=== PATIENT | female | born 1935 | race Caucasian/White ===

== ENCOUNTER 2023-12-31 11:59 | Emergency (ER) | payer OTHER, SELFPAY ==
[2023-12-31 12:05] VITALS: BP 147/95
--- NOTE | 2023-12-31 13:32 | ED.GENMED ---
History of Present Illness
General
Chief Complaint: Skin Surface Trauma
Source: patient and family
Time Seen by Provider: 12/31/23 12:28
History of Present Illness
History of Present Illness:
88-year-old female with past medical history of hypertension presenting to the emergency department for evaluation with family after she fell earlier this morning injuring her right elbow and possible head injury. Does not remember much of the
incident. Also notes that she had an abrasion from the right elbow yesterday too. Denies any other injuries. She does admit to some mild right elbow pain. No reported loss consciousness, vomiting or visual changes. Patient denies any headache
presently
Past History
Past History
ED Past Medical History: HTN
ED Past Surgical History: Orthopedic and Other (3 with documented past surgical history)
Social History
Tobacco: Non-smoker
Alcohol: None
Drug: None
Personal:
Living: with family
Review of Systems
Review of Systems
All Other Systems: ROS reviewed and negative except as documented in HPI and ROS
Phy Exam
Physical Exam
Physical Exam:
GENERAL: Alert , in no apparent distress, smiling and pleasant
EYE: conjunctiva clear
Head: Normocephalic atraumatic
NECK: Supple,
ENT: mmm.
LUNGS: no acute respiratory distress
NEUROLOGICAL: Alert and oriented
SKIN: Warm and dry, abrasion/very small skin tear measuring <5mm. No active bleeding. dried blood surrounding
MUSCULOSKELETAL: well perfused.
PSYCH: Normal and appropriate interaction.
Scores
Heart Failure Risk
Heart Failure Risk Score: Not Applicable
Heart Score for Chest Pain Patients
STEMI patient?: Not applicable
Withdrawal Assessment of Alcohol
Withdrawal Assessment Completed?: Not applicable
Course
Orders/Labs/Results
Orders:
Orders
12/31/23 12:46
CT Head W/o Iv Contrast Urgent
Comment:
Reason For Exam: unwitnessed fall
Wound Dressing- Treatment ONCE
Location of Wound: right elbow
CR Elbow - Right Min 3 Views Urgent
Comment:
Reason For Exam: fall
Vital Signs
Initial and Last Documented VS:
Initial Vital Signs
Temp Pulse Resp BP Pulse Ox
98.3 F 78 18 147/95 98
12/31/23 12:12/31/23 12:05 12/31/23 12:05 12/31/23 12:05 12/31/23 12:05
Last Documented Vital Signs
Temp Pulse Resp BP Pulse Ox
98.3 F 78 18 147/95 98
12/31/23 12:05 12/31/23 12:05 12/31/23 12:12/31/23 12:05 12/31/23 12:05
MDM/Problems Addressed
Differential Diagnosis Includes:
contusion, abrasion, ICH, elbow fracture
MDM/Problems Addressed:
88-year-old female presenting to the emergency department for evaluation after an unwitnessed fall early this morning. Patient notes abrasion to the right elbow. Will clean wound and place sterile dressing over top. X-ray ordered to rule out
fracture. CT of the head ordered given patient does seem to have some mild cognitive impairment and does not fully the fall.
*Radiology
Radiology exam reviewed: preliminary read by ED provider and radiology read reviewed
*Pulse Oximetry
Patient hypoxic: no
*Critical Care Note
Total Time (30-74mins, 75-104mins- exclusive of procedures): Not Applicable
Patient Management
Escalation/DeEscalation of care consider admission/obs:
Patient's head CT came back without any acute abnormalities. X-ray of the right elbow showed no acute fracture. Sterile dressing was applied. Patient stable for discharge home. Aware of return precautions.
ED Attending Note
-
Portions of this chart may have been created with voice recognition software.� Occasional wrong word or��sound alike� substitutions may have occurred due to the inherent limitations of voice recognition software.
Discharge Plan
Departure
Patient Disposition: Home (Routine Discharge)
Date of Disposition: 12/31/23
Time of Disposition: 13:47
Patient with high blood pressure during this ER visit?: Yes
Discharge Problem:
Accidental fall, Abrasion of elbow, right
Instructions: Wound Care (DC)
Prescriptions:
No Action
pantoprazole [Protonix] 40 mg Tablet,Delayed Release (Dr/Ec)
40 mg PO DAILY
folic acid 1 mg tablet
1 mg PO DAILY
metoprolol succinate [Toprol XL] 25 mg Tablet Extended Release 24 Hr
25 mg PO DAILY
amlodipine-olmesartan [Martir] 10-40 mg Tablet
1 tab PO DAILY
bisacodyl 10 mg Suppository
10 mg [place] DAILYPRN PRN (Reason: constipation) Qty: 10 0RF
polyethylene glycol 3350 17 gram Powder In Packet
17 g PO DAILY Qty: 30 0RF
acetaminophen [Pain Relief ES (acetaminophen)] 500 mg Tablet
1,000 mg PO TID Qty: 20 0RF
oxycodone 5 mg Tablet
5 mg PO Q4HPRN PRN (Reason: moderate pain ) Qty: 30 0RF
Referrals:
Ankit Rivera MD [Family Provider] -
Interventions
Interventions:
*General Assessment Last Done: 12/31/23 12:05
*Nursing Disposition Last Done: 12/31/23 14:54
ED-Skin Assessment Last Done: 12/31/23 12:53
Discharge Date and Time
Discharge Date/Time: 12/31/23 14:54
Print Language: SETSWA[place]
== END 2023-12-31 14:54 | disposition home or self-care (01) ==
LOC: EMR 11:59
PROVIDERS: EMERGENCY PHYSICIAN Student in an Organized Health Care Education/Training Program; FAMILY PHYSICIAN Internal Medicine
DX: S50.311A Abrasion of right elbow, initial encounter (principal); G31.84 Mild cognitive impairment of uncertain or unknown etiology; W19.XXXA Unspecified fall, initial encounter; I10 Essential (primary) hypertension; Z88.1 Allergy status to other antibiotic agents; Z88.0 Allergy status to penicillin
CPT/HCPCS: 99284; 70450; 73080

== ENCOUNTER → 2024-06-03 12:54 | Outpatient (REF) | payer OTHER, SELFPAY | LOC: HWRAD 12:54 | PROVIDERS: ATTENDING PHYSICIAN Internal Medicine Rheumatology; FAMILY PHYSICIAN Internal Medicine | DX: M81.0 Age-related osteoporosis without current pathological fracture (principal) | CPT/HCPCS: 77080 ==